=== PATIENT | female | born 1960 | race Caucasian/White ===

== ENCOUNTER 2020-08-13 17:13 | Emergency (ER) | payer SELFPAY ==
[~2020-08-13] VITALS: Ht 162.6 cm; Wt 64.0 kg
[2020-08-13] MEDS ORDERED: LIDOCAINE-MPF 1%, 5ML ONE (18:55)
--- NOTE | 2020-08-13 18:59 | NUR ---
PT AMBULATORY TO ROOM 12 W/ C/O R 2ND TOE PAIN. PT NOTED TO HAVE LARGE FUNGAL TOENAIL. PT STATES PAIN STARTED TUESDAY AND HAS BEEN ONGOING. PT DENIES HX DM. PT RESTING ON GURNEY. NADN. WARM BLANKET PROVIDED.
[2020-08-13] MEDS ORDERED: LIDOCAINE-MPF 1%, 5ML INFIL ONE (19:00)
[2020-08-13] MEDS ORDERED: NEOSPORIN OINT. PKT 1 PACKET ONE (19:24)
[2020-08-13 19:38] VITALS: BP 135/71
== END 2020-08-13 19:49 | disposition home or self-care (01) ==
LOC: ED 19:30
DX: L60.0 Ingrowing nail (principal)
CPT/HCPCS: 11730; 99284